=== PATIENT | female | born 1955 | race Caucasian/White ===

== ENCOUNTER 2017-02-27 14:28 | Emergency (ER) | payer MEDICARE, MEDICAID ==
--- NOTE | 2017-02-27 15:01 | EDM.PDOC ---
ED HPI GENERAL MEDICAL PROBLEM - General Chief Complaint: General Stated Complaint: INFECTION IN HER MOUTH? Time Seen by Provider: 02/27/17 14:33 Source of Information: Reports: Patient History Limitations: Reports: No Limitations - History of Present Illness INITIAL COMMENTS - FREE TEXT/NARRATIVE: Patient is a 61-year-old female who presents to emergency department this afternoon with multiple complaints. Patient states that she has chronic low back back pain, oral thrush, always feels tired, medication refill, and lack of appetite. Patient is a [id number] diabetic and has not been taking her metformin for 2-3 weeks. Patient seen by primary care last month, but did not get prescription filled. Also seen one month ago at an emergency department , but given pain medicine and discharged. Patient denies chest pain, shortness of breath, abdominal pain, bowel changes, recent falls, headache, blurry vision , or dizziness. Onset: Gradual Duration: Chronic Severity: Mild Improves with: Reports: None Worsens with: Reports: None Associated Symptoms: Reports: Malaise. Denies: Chest Pain, Cough, Fever/Chills , Headaches, Nausea/Vomiting, Shortness of Breath Back Pain Score (Numeric/FACES): 10 - Related Data Allergies Allergy/AdvReac Type Severity Reaction Status Date / Time iodine Allergy Hives Verified 02/27/17 14:42 Home Meds: Home Meds FLUoxetine HCl [Fluoxetine] 10 mg PO DAILY 02/27/17 [History] Fluticasone Propionate [Flovent HFA 110 MCG] 12 gm INH BID 02/27/17 [History] Gabapentin [Neurontin] 300 mg PO DAILY 02/27/17 [History] Gabapentin [Neurontin] 300 mg PO DAILY #30 cap 02/27/17 [Rx] Nystatin 10 ml PO TID #200 ml 02/27/17 [Rx] Nystatin [Mycostatin] 5 ml PO QID 02/27/17 [History] Polyethylene Glycol 3350 [MiraLAX] 17 gm PO DAILY PRN 02/27/17 [History] Simvastatin [Zocor] 20 mg PO BEDTIME 02/27/17 [History] Simvastatin [Zocor] 20 mg PO BEDTIME #30 tablet 02/27/17 [Rx] metFORMIN HCl [Metformin HCl ER] 500 mg PO DAILY 02/27/17 [History] metFORMIN HCl [Metformin HCl ER] 500 mg PO DAILY #30 tab.er.24 02/27/17 [Rx] traMADol [Ultram] 50 mg PO Q6H PRN 02/27/17 [History] ED ROS GENERAL - Review of Systems Review Of Systems: ROS reveals no pertinent complaints other than HPI. Constitutional: Reports: Malaise, Fatigue, Decreased Appetite HEENT: Reports: Other (oral thrush) Respiratory: Reports: No Symptoms Cardiovascular: Reports: No Symptoms Endocrine: Reports: Fatigue, Polyuria GI/Abdominal: Reports: No Symptoms : Reports: No Symptoms Musculoskeletal: Reports: Back Pain (OF CHRONIC NATURE) Skin: Reports: No Symptoms Neurological: Reports: No Symptoms Psychiatric: Reports: No Symptoms Hematologic/Lymphatic: Reports: No Symptoms Immunologic: Reports: No Symptoms ED EXAM, GENERAL - Physical Exam Exam: See Below Exam Limited By: No Limitations General Appearance: Alert, WD/WN, No Apparent Distress Eye Exam: Bilateral Eye: Normal Inspection Ears: Normal External Exam, Normal Canal, Normal TMs Nose: Normal Inspection, Normal Mucosa, No Blood Throat/Mouth: Normal Oropharynx, No Airway Compromise, Other (TONGUE THRUSH) Neck: Normal Inspection, Supple. No: Full Range of Motion, Lymphadenopathy (R) Respiratory/Chest: No Respiratory Distress, Lungs Clear, Normal Breath Sounds, No Accessory Muscle Use, Chest Non-Tender Cardiovascular: Regular Rate, Rhythm, No Murmur GI/Abdominal: Normal Bowel Sounds, Soft, Non-Tender, No Organomegaly, No Distention, No Abnormal Bruit, No Mass Back Exam: Full Range of Motion, Paraspinal Tenderness. No: CVA Tenderness (L) , CVA Tenderness (R) Extremities: Normal Inspection, Normal Range of Motion, Non-Tender, No Pedal Edema, Normal Capillary Refill Neurological: Alert, Oriented, CN II-XII Intact, Normal Cognition Psychiatric: Normal Affect, Normal Mood Skin Exam: Warm, Dry, Intact, Normal Color, No Rash Lymphatic: No Adenopathy Course - Vital Signs Last Recorded V/S: Last Vital Signs Temp 97.6 F 02/27/17 14:44 Pulse 106 H 02/27/17 14:44 Resp 18 02/27/17 14:44 BP 152/94 H 02/27/17 14:44 Pulse Ox 98 02/27/17 14:44 - Orders/Labs/Meds Orders: Active Orders 24 hr Category Date Time Status CBC WITH AUTO DIFF [HEME] Stat Lab 02/27/17 14:43 Ordered COMPREHENSIVE METABOLIC PN,CMP [CHEM] Stat Lab 02/27/17 14:43 Ordered UA W/MICROSCOPIC [URIN] Stat Lab 02/27/17 14:43 Uncollected - Re-Assessments/Exams Free Text/Narrative Re-Assessment/Exam: 02/27/17 15:26 Patient afebrile, nontoxic appearing, vital signs stable. Patient will be given prescription for simvastatin, metformin, tramadol and gabapentin. Patient will follow up with primary care [facility] next week. 02/27/17 15:28 Departure - Departure Time of Disposition: 15:28 Disposition: Home, Self-Care 01 Condition: Good Clinical Impression: Candidiasis of mouth Diabetes mellitus Qualifiers: Diabetes mellitus type: type 2 Diabetes mellitus complication status: without complication Diabetes mellitus terminal operations manager insulin use: unspecified long-term insulin use status Qualified Code(s): E11.9 - Type 2 diabetes mellitus without complications Chronic lower back pain Qualifiers: Back pain laterality: unspecified Sciatica presence: without sciatica Qualified Code(s): M54.5 - Low back pain; G89.29 - Other chronic pain; G89.29 - Other chronic pain - Discharge Information Instructions: Chronic Back Pain, Type 2 Diabetes Mellitus, Adult, [id number] , Stomatitis, [id number] Referrals: PCP,Unknown [Primary Care Provider] - Kemar Cabrera PA-C [Ordering Only Provider] - Forms: ED Department Discharge Additional Instructions: FOLLOW-UP WITH [facility] IN 3-5 DAYS. RETURN TO EMERGENCY DEPARTMENT SOONER IF SYMPTOMS CONTINUE OR WORSEN. - My Orders Last 24 Hours: My Active Orders 02/27/17 14:43 CBC WITH AUTO DIFF [HEME] Stat COMPREHENSIVE METABOLIC PN,CMP [CHEM] Stat UA W/MICROSCOPIC [URIN] Stat - Assessment/Plan Last 24 Hours: My Active Orders 02/27/17 14:43 CBC WITH AUTO DIFF [HEME] Stat COMPREHENSIVE METABOLIC PN,CMP [CHEM] Stat UA W/MICROSCOPIC [URIN] Stat Assessment:: NIDDM , CHRONIC LBP Plan: FOLLOW-UP AT [facility].
[2017-02-27 15:12] LABS: CHLORIDE,CL 101 mmol/L (98-115); SODIUM,NA 139 mmol/L (136-145)
== END 2017-02-27 15:40 | disposition home or self-care (01) ==
LOC: KA.ED 14:28
DX: M54.5 Low back pain (principal); G89.29 Other chronic pain; B37.0 Candidal stomatitis; E11.9 Type 2 diabetes mellitus without complications; Z79.84 Long term (current) use of oral hypoglycemic drugs; Z79.899 Other long term (current) drug therapy; Z91.048 Other nonmedicinal substance allergy status
CPT/HCPCS: 36415; 80053; 81001; 85025; 99283